=== PATIENT | male | born 1985 | race American Indian/Alaskan Native ===

== ENCOUNTER 2016-08-02 16:30 | Emergency (ER) | payer SELFPAY ==
[2016-08-02 17:39] LABS: Basophils % (Auto) 0.6 % (0.0-1.8); Eosinophils % (Auto) 2.2 % (0.0-4.3); Hematocrit 44.5 % (35.5-45.6); Hemoglobin 14.7 gm/dl (11.8-15.2); Mean Corpuscular HGB Conc 33 % (32-34); Mean Corpuscular Hemoglobin 29 pg (28-32); Mean Corpuscular Volume 87 fl (84-94); Platelet Count 305 K/mm3 (140-440); Red Blood Count 5.14 M/mm3 (3.65-5.03); Red Cell Distribution Width 13.9 % (13.2-15.2); White Blood Count 10.4 K/mm3 (4.5-11.0)
[2016-08-02 18:00] LABS: Anion Gap 15 mmol/L; BUN/Creatinine Ratio 13.07; Blood Urea Nitrogen 17 mg/dL (9-20); Calcium 9.4 mg/dL (8.4-10.2); Carbon Dioxide 30 mmol/L (22-30); Chloride 98.9 mmol/L (98-107); Glucose 85 mg/dL (75-100); Potassium 4.3 mmol/L (3.6-5.0); Sodium 140 mmol/L (137-145)
[2016-08-02] MEDS ORDERED: CATAPRES PO ONE (18:22)
--- NOTE | 2016-08-02 18:23 | Emergency Department Report ---
ED Headache HPI - General Chief Complaint: High BP Stated Complaint: HIGH B/P Time Seen by Provider: 08/02/16 18:16 Source: patient, family Exam Limitations: no limitations - History of Present Illness Initial Comments: Patient here reports that she has had high blood pressure for the past 2 weeks he is reporting headache to the right side of his head this started hurting today. Denies any nausea vomiting or fever. Denies any neck pain or stiffness. Denies any trauma. Blood pressure in triage is 190/107. Patient reports that he was on Norvasc but he hasn't taken in the last 6 months she reported that he took himself off of it. He said he had a primary care physician and is looking for one now. Denies any dizziness or blurred vision. Denies any nasal congestion or facial pain. Patient requesting a refill on his Norvasc until he can get in to see his doctor. Timing/Duration: 24 hours, waxing and waning Quality: mild, achy Head Injury Location: parietal Recent Head Trauma: occasional headaches Associated Symptoms: denies: confusion, fatigue, facial pain, fever/chills, flushing, loss of consciousness, nausea/vomiting, nasal congestion, nasal drainage, numbness in legs/feet, rash, seizures, sinus infection, stiff neck, vision changes, weakness Allergies/Adverse Reactions: Allergies No Known Allergies Allergy (Unverified 08/02/16 17:07) Home Medications: Ambulatory Orders amLODIPine [Norvasc] 10 mg PO DAILY #30 tab 08/02/16 ED Review of Systems ROS: Stated complaint: HIGH B/P Other details as noted in HPI Comment: All other systems reviewed and negative Constitutional: denies: chills, fever Eyes: denies: eye pain, vision change ENT: denies: ear pain, throat pain, epistaxis, congestion Respiratory: no symptoms reported Cardiovascular: denies: chest pain, palpitations, edema, syncope Gastrointestinal: denies: abdominal pain, nausea, vomiting Musculoskeletal: denies: back pain, arthralgia Skin: denies: rash Neurological: headache. denies: weakness, numbness, paresthesias, confusion, abnormal gait, vertigo ED Past Medical Hx - Past Medical History Previous Medical History?: Yes Hx Hypertension: Yes - Surgical History Past Surgical History?: No - Family History Family history: hypertension - Social History Smoking Status: Current Every Day Smoker Substance Use Type: Alcohol - Medications Home Medications: Home Medications Medication Instructions Recorded Confirmed Last Taken Type amLODIPine [Norvasc] 10 mg PO DAILY #30 tab 08/02/16 Unknown Rx ED Physical Exam - General Limitations: No Limitations General appearance: alert, in no apparent distress - Head Head exam: Present: atraumatic, normocephalic, normal inspection - Expanded Head Exam Expanded Head exam: Absent: laceration, abrasion, contusion, hematoma, racoon eyes, tang's sign, general tenderness, tenderness of temporal artery, CSF rhinorrhea , CSF otorrhea - Eye Eye exam: Present: normal appearance, PERRL, EOMI. Absent: nystagmus, periorbital swelling, periorbital tenderness Pupils: Present: normal accommodation - ENT ENT exam: Present: normal exam, normal orophraynx, mucous membranes moist, TM's normal bilaterally, normal external ear exam - Neck Neck exam: Present: normal inspection, full ROM. Absent: tenderness, meningismus, lymphadenopathy - Expanded Neck Exam Expanded Neck exam: Absent: tenderness, midline deformity, anterior neck swelling, tracheal deviation - Respiratory Respiratory exam: Present: normal lung sounds bilaterally. Absent: respiratory distress, chest wall tenderness - Cardiovascular Cardiovascular Exam: Present: regular rate, normal rhythm, normal heart sounds - GI/Abdominal GI/Abdominal exam: Present: soft, normal bowel sounds. Absent: distended, tenderness, guarding, rebound, rigid - Extremities Exam Extremities exam: Present: normal inspection, full ROM, normal capillary refill. Absent: tenderness, pedal edema, joint swelling, calf tenderness - Back Exam Back exam: Present: normal inspection, full ROM. Absent: tenderness, CVA tenderness (R), CVA tenderness (L), muscle spasm, paraspinal tenderness, rash noted - Neurological Exam Neurological exam: Present: alert, oriented X3, normal gait, reflexes normal. Absent: motor sensory deficit - Expanded Neurological Exam Expanded Neurological exam: Absent: innattentive, memory loss-remote event, memory loss- recent event, ataxia, receptive aphasia, expressive aphasia, total aphasia, tremor, protecting the airway Patient oriented to: Present: person, place, time Speech: Present: fluid speech Cranial nerves: EOM's Intact: Normal, Gag Reflex: Normal, Nystagmus: Normal, Facial Sensation: Normal Cerebellar function: Romberg: Normal Upper motor neuron: Pronator Drift: Normal, Sensory Extinction: Normal Sensory exam: Upper Extremity Light Touch: Normal, Upper Extremity Temperature: Normal, UE 2 Point Discrimination: Normal, Lower Extremity Light Touch: Normal, Lower Extremity Temperature: Normal, LE 2 Point Discrimination: Normal Motor strength exam: RUE: 5, LUE: 5, RLE: 5, LLE: 5 DTR: bicep (R): 2+, bicep (L): 2+, tricep (R): 2+, tricep (L): 2+, knee (R): 2+ , knee (L): 2+, ankle (R): 2+, ankle (L): 2+ Best Eye Response (Gurdon): (4) open spontaneously Best Motor Response (Tahir): (6) obeys commands Best Verbal Response (Tahir): (5) oriented Tahir Total: 15 - Psychiatric Psychiatric exam: Present: normal affect, normal mood - Skin Skin exam: Present: warm, dry, intact, normal color. Absent: rash ED Course Vital Signs 08/02/16 08/02/16 08/02/16 17:07 18:30 19:00 Temperature 98.1 F Pulse Rate 83 88 88 Respiratory 18 16 Rate Blood Pressure 190/107 153/92 Blood Pressure 153/92 [Left] O2 Sat by Pulse 100 98 Oximetry - Reevaluation(s) Reevaluation #1: 08/02/16 19:54 blood pressure stabilized at present. ED Medical Decision Making - Lab Data Result diagrams: 08/02/16 17:28 08/02/16 17:28 Vital Signs 08/02/16 08/02/16 08/02/16 17:07 18:30 19:00 Temperature 98.1 F Pulse Rate 83 88 88 Respiratory 18 16 Rate Blood Pressure 190/107 153/92 Blood Pressure 153/92 [Left] O2 Sat by Pulse 100 98 Oximetry - EKG Data Interpretation: no acute changes - Medical Decision Making ED course: I Discussed lab work and blood pressure management with patient. His blood pressure has stabilized without any medication. Headache has resolved without any medication. I discussed the patient that I'll put him back on his Norvasc but he will need to follow-up with primary care clinic as directed for management of chronic medical problem. Discussed with him that he needs to keep a log of his blood pressure and call tomorrow to schedule an appointment and bring the BLOOD pressureto his first visit for evaluation .he agrees with plan and agrees to follow-up.. Critical care attestation.: If time is entered above; I have spent that time in minutes in the direct care of this critically ill patient, excluding procedure time. ED Disposition Clinical Impression: Encounter for smoking cessation counseling Headache Qualifiers: Headache type: unspecified Headache chronicity pattern: acute headache Intractability: not intractable Qualified Code(s): R51 - Headache Hypertension Qualifiers: Hypertension type: essential hypertension Qualified Code(s): I10 - Essential ( primary) hypertension Disposition: DISCHARGED TO HOME OR SELFCARE Is pt being admited?: No Does the pt Need Aspirin: No Condition: Stable Instructions: Hypertension (ED), Acute Headache (ED), How to Stop Smoking (ED) Additional Instructions: Please follow up with primary care clinic referred to an take blood pressure and keep a log to take to your first visit. Take blood pressure medication as scheduled Do not take off blood pressure medication Please stop smoking Prescriptions: amLODIPine [Norvasc] 10 mg PO DAILY #30 tab Referrals: [facility] [Outside] - 2-3 Days EMELINA FRAGA MD [Staff Physician] - 2-3 Days Forms: Accompanied Note, Work/School Release Form(ED)
[2016-08-02 18:31] VITALS: BP 153/92
== END 2016-08-02 20:08 | disposition home or self-care (01) ==
LOC: ED 16:30
DX: I10 Essential (primary) hypertension (principal); F17.200 Nicotine dependence, unspecified, uncomplicated
CPT/HCPCS: 36415; 80048; 85025; 99283